=== PATIENT | male | born 1955 | race Caucasian/White ===

== ENCOUNTER 2022-10-26 09:13 | Day surgery (SDC) | payer MEDICARE, OTHER ==
[~2022-10-26 09:13] MED LIST: Lactated Ringers 1,000 ML IV SCH; Lidocaine 1%/Sod Bicarbonate in NS 8.4% 1 ML Syringe IDERM PRN; Ropivacaine 0.5% 5 MG/ML 30 ML SDV ONE; Sodium Chloride 0.9% 10 ML Syringe FLUSH PRN; Sodium Chloride 0.9% 10 ML Syringe FLUSH SCH
[2022-10-26] MEDS ORDERED: Acetaminophen 325 MG Tab PO ONE (09:29)
[2022-10-26] MEDS ORDERED: Pregabalin 25 MG Cap PO STA (09:29)
[2022-10-26] MEDS ORDERED: oxyCODONE ER 10 MG TAB.ER PO ONE (09:29)
[2022-10-26] MEDS ORDERED: Albuterol/Ipratropium 3.0-0.5 MG/3 ML Neb Soln NEB ONE (09:53)
[2022-10-26] MEDS ORDERED: Lidocaine 1% 5 ML VIAL ONE (10:00)
[2022-10-26] MEDS ORDERED: Succinylcholine 200 MG/10 ML MDV ONE (10:00)
[2022-10-26] MEDS ORDERED: Rocuronium 50 MG/5 ML Vial ONE (10:00)
[2022-10-26] MEDS ORDERED: Propofol 200 MG/20 ML SDV ONE (10:01)
[2022-10-26] MEDS ORDERED: fentaNYL 100 MCG/2 ML SDV ONE (10:02)
[2022-10-26] MEDS ORDERED: ceFAZolin 2 GM Vial ONE (10:02)
[2022-10-26] MEDS ORDERED: Midazolam 1 MG/ML 2 ML SDV ONE (10:04)
[2022-10-26] MEDS ORDERED: fentaNYL 100 MCG/2 ML SDV IVPUSH PRN (10:59)
[2022-10-26] MEDS ORDERED: Ondansetron 4 MG/2 ML SDV IVPUSH PRN (10:59)
[2022-10-26] MEDS ORDERED: HYDROmorphone 0.5 MG/0.5 ML Syringe IVPUSH PRN (10:59)
[2022-10-26] MEDS ORDERED: ePHEDrine 50 MG/ML SDV ONE (11:14)
[2022-10-26] MEDS ORDERED: Ondansetron 4 MG/2 ML SDV ONE (11:19)
[2022-10-26] MEDS: Tranexamic Acid 1,000 MG/10 ML Vial ONE ×2 (11:44→12:10)
[2022-10-26] MEDS: Vancomycin 1 GM SDV ONE ×2 (11:44→12:10)
[2022-10-26] MEDS ORDERED: Ketorolac 30 MG/ML SDV ONE (12:11)
== END 2022-10-26 15:15 | disposition home or self-care (01) ==
LOC: JD.SDS 09:13 → EDSTATUS 11:45 → JD.SDS 15:15
PROVIDERS: ATTEND Orthopaedic Surgery
DX: M19.012 Primary osteoarthritis, left shoulder (principal); I10 Essential (primary) hypertension; F43.22 Adjustment disorder with anxiety; I34.1 Nonrheumatic mitral (valve) prolapse; F17.210 Nicotine dependence, cigarettes, uncomplicated; M19.90 Unspecified osteoarthritis, unspecified site; Z79.899 Other long term (current) drug therapy; Z98.1 Arthrodesis status; Z88.8 Allergy status to other drugs, medicaments and biological substances; Z96.652 Presence of left artificial knee joint
CPT/HCPCS: 23472; 73020; 76000; 97161; A9270; C1713; C1769; C1776; J0330; J0690; J1885; J2250; J2405; J2704; J2795; J3010; J3370; J7120; 01638; 64415; J3490; J7620-GY